=== PATIENT | male | born 1985 | race Caucasian/White ===

== ENCOUNTER 2018-05-12 18:15 | Emergency (ER) | payer MEDICAID, OTHER ==
[2018-05-12 19:14] VITALS: BP 131/79
--- NOTE | 2018-05-12 20:01 | UC ---
General HPI - HPI Summary HPI Summary: Pt presents with c/o sudden onset of fever, chills, vomiting X 1, then " diarrhea all the time". Pt has newly diagnosed FActor V leiden. Pt had [place] ~ 5 months ago. Pt states that he has been taking anticoagulant medication as directed and has made significant "lifestyle changes" as instructed by baking assistant. Pt states that his back is stiff and painful and he is unable to "bend his back". C/O SCHAFFER, chest pain, open sores or photophobia. He denies any urinary symptoms. Pt also c/o generalized abdominal pain. - History of Current Complaint Chief Complaint: UCGI Stated Complaint: FEVER/DIARRHEA Time Seen by Provider: 05/12/18 19:27 Hx Obtained From: Patient Onset/Duration: Sudden Onset, Lasting Days, Still Present Timing: Constant Onset Severity: Mild Current Severity: Moderate Pain Intensity: 7 Associated Signs & Symptoms: Positive: Abdominal Pain, Back Pain, SOB - Allergy/Home Medications Allergies/Adverse Reactions: Allergies Allergy/AdvReac Type Severity Reaction Status Date / Time hydrocortisone Allergy skin scaley Unverified 05/12/18 19:20 Penicillins Allergy Rash Verified 05/12/18 19:20 propylene glycol Allergy skin scaley Verified 05/12/18 19:20 neomycin polymyxin Allergy skin scaley Uncoded 05/12/18 19:20 hydrocortisone Home Medications: Home Medications Acetaminophen [Extra Strength Non-Aspirin] 1,000 mg PO Q3HR PRN 05/12/18 [ History Confirmed 05/12/18] Alirocumab [Praluent] 150 mg SC SEE INSTRUCTIONS 05/12/18 [History Confirmed ] Amlodipine Besylate [Norvasc] 10 mg PO QAM 05/12/18 [History Confirmed 05/12/18] Apixaban* [Eliquis*] 5 mg PO BID 05/12/18 [History Confirmed 05/12/18] Clopidogrel TAB* [Plavix TAB*] 75 mg PO QPM 05/12/18 [History Confirmed 05/12/18 ] Ibuprofen TAB* [Motrin TAB* 400 MG] 400 mg PO Q4H PRN 05/12/18 [History Confirmed 05/12/18] Metoprolol Tartrate 1 tab PO BID 05/12/18 [History Confirmed 05/12/18] Sildenafil Citrate [Viagra] 100 mg PO SEE INSTRUCTIONS 05/12/18 [History Confirmed 05/12/18] PMH/Surg Hx/FS Hx/Imm Hx Previously Healthy: Yes Endocrine History: Dyslipidemia Cardiovascular History: Cardiac Disease, Hypertension, Myocardial Infarction, Bleeding Disorders GI/ History: Kidney Stones - Surgical History Surgical History: Yes Surgery Procedure, Year, and Place: tonsilectomy and tubes in ears as a child. Vasectomy; cardiac stent 11/2017 - Family History Known Family History: Positive: Cardiac Disease - Social History Occupation: Employed Full-time Lives: With Family Alcohol Use: Daily Alcohol Amount: 3 drinks a night Substance Use Type: None Smoking Status (MU): Former Smoker Length of Time of Smoking/Using Tobacco: Smoking for 15 years. Have You Smoked in the Last Year: Yes When Did the Patient Quit Smoking/Using Tobacco: 08/2017 Review of Systems Constitutional: Fever, Chills, Fatigue Skin: Negative Eyes: Negative ENT: Negative Respiratory: Shortness Of Breath Cardiovascular: Negative Gastrointestinal: Abdominal Pain, Vomiting, Diarrhea Genitourinary: Negative Motor: Decreased ROM - back Neurovascular: Negative Musculoskeletal: Decreased ROM, Myalgia Neurological: Headache Psychological: Negative Is Patient Immunocompromised?: No All Other Systems Reviewed And Are Negative: Yes Physical Exam Triage Information Reviewed: Yes Appearance: Ill-Appearing, Pain Distress Vital Signs: Initial Vital Signs Temp 99.4 F 05/12/18 19:05 Pulse 81 05/12/18 19:05 Resp 28 05/12/18 19:05 BP 131/79 05/12/18 19:05 Pulse Ox 100 05/12/18 19:05 Vital Signs Reviewed: Yes Eye Exam: Normal ENT Exam: Normal Dental Exam: Normal Neck exam: Normal Respiratory: Positive: Other: - tachypneic Cardiovascular Exam: Normal Abdomen Description: Positive: Other: - generalized tenderness Bowel Sounds: Positive: Present Musculoskeletal: Positive: ROM Limited @ - low back Neurological Exam: Normal Psychological Exam: Normal Psychological: Positive: Normal Response To Family Skin Exam: Normal - pale Course/Dx - Course Course Of Treatment: Pt refused to travel by ambulance. - Differential Dx - Multi-Symptom Differential Diagnoses: Other - PE, dehydration, sob. dyspnea Provider Diagnoses: tachypnea. back pain. fever - Physician Notifications Discussed Patient Care With: Jessica zhou - accepted pt Time Discussed With Above Provider: 20:05 Discharge - Sign-Out/Discharge Documenting (check all that apply): Patient Departure All imaging exams completed and their final reports reviewed: No Studies - Discharge Plan Condition: Stable Disposition: AGAINST MEDICAL ADVICE Patient Education Materials: Fever in Adults (ED), Dyspnea (ED), Back Pain (ED) Referrals: Trevon Ferguson MD [Primary Care Provider] - - Billing Disposition and Condition Condition: STABLE Disposition: Against Medical Advice - Attestation Statements Provider Attestation: I was available for consult. This patient was seen by the EUGENE. The patient was not presented to, seen by, or examined by me. -Ljj Addendum entered and electronically signed by Diana SCHROEDER,Odalys Bolanos NP 12:00:
== END 2018-05-12 19:56 | disposition left against medical advice (07) ==
LOC: UCCORT 18:15
DX: R06.82 Tachypnea, not elsewhere classified (principal); M54.9 Dorsalgia, unspecified; R50.9 Fever, unspecified; Z88.0 Allergy status to penicillin; Z88.8 Allergy status to other drugs, medicaments and biological substances; I10 Essential (primary) hypertension; I25.2 Old myocardial infarction; E78.5 Hyperlipidemia, unspecified; Z87.891 Personal history of nicotine dependence
CPT/HCPCS: 99212; G0463